=== PATIENT | male | born 1975 | race African-American/Black ===

== ENCOUNTER 2021-07-01 19:54 | Emergency (ER) | payer BC ==
[~2021-07-01] VITALS: Ht 172.7 cm; Wt 118.2 kg
[2021-07-01 21:04] VITALS: BP 139/98
== END 2021-07-01 23:06 | disposition left against medical advice (07) ==
LOC: ER 19:54
DX: Z53.21 Procedure and treatment not carried out due to patient leaving prior to being seen by health care provider (principal)

== ENCOUNTER 2021-12-18 07:47 | Emergency (ER) | payer BC ==
[~2021-12-18] VITALS: Ht 172.7 cm; Wt 113.0 kg
[2021-12-18] MEDS ORDERED: ONDANSETRON HCL 4MG/2ML INJ IV STA (09:02)
[2021-12-18] MEDS ORDERED: SODIUM CHLORIDE 0.9% 1,000 ML IV ONE (09:15)
[2021-12-18 09:41] LABS: CHLORIDE 103 mEq/L (98-107)
[2021-12-18 09:43] LABS: HEMATOCRIT. 48.3 % (42.0-52.0); HEMOGLOBIN. 16.6 g/dL (14.0-18.0); MEAN CORPUSCULAR HEMOGLOBIN 30.7 pg (28.0-32.0); MEAN CORPUSCULAR VOLUME 89.5 fL (80.0-94.0); PLATELET 395 x1000/uL (130-400); PROTHROMBIN TIME 10.9 sec (9.6-11.0); RED CELL DISTRIBUTION WIDTH 13.4 % (11.6-14.6)
[2021-12-18 10:11] LABS: PLATELET ESTIMATE NORMAL
[2021-12-18 10:21] VITALS: BP 133/90
[2021-12-18] MEDS ORDERED: ONDA4TAB50 MT (13:12)
== END 2021-12-18 13:19 | disposition home or self-care (01) ==
LOC: ER 08:04
DX: K52.9 Noninfective gastroenteritis and colitis, unspecified (principal); R11.2 Nausea with vomiting, unspecified; I10 Essential (primary) hypertension; Z98.890 Other specified postprocedural states
CPT/HCPCS: 36415; 80053; 84484; 85025; 85610; 93005; 96361; 96374; 99284; J2405; J7030; Z7610